=== PATIENT | female | born 1965 | race Caucasian/White ===

== ENCOUNTER 2018-11-10 06:36 | Emergency (ER) | payer OTHER, MEDICAID ==
[~2018-11-10] VITALS: Ht 162.6 cm; Wt 68.0 kg
--- NOTE | 2018-11-10 06:36 | NUR ---
PT ZORAIDA ALS. TAKEN TO BED 11
[2018-11-10 06:37] VITALS: BP 125/77
--- NOTE | 2018-11-10 06:40 | NUR ---
PT BIBA FOR SOB X1 DAY. 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 RR EVEN AND UNLABORED, BL BS DIMINSHED THROUGHOUT. PT ON NC 5L ON ARRIVAL. WILL CONTINUE W/ ORDERS. PMH HTN, BREAST CANCER, DOUBLE MASTECOMY
[2018-11-10] MEDS ORDERED: NACL 0.9% 500 ML IV SCH (06:41)
--- NOTE | 2018-11-10 07:04 | NUR ---
X-Ray at bedside.
[2018-11-10 07:10] LABS: HEMATOCRIT 29.6 % (36-48); HEMOGLOBIN 9.7 g/dL (12.0-16.0); LYMPHOCYTES # (AUTO) 0.7 K/uL (2.5-16.5); LYMPHOCYTES % (AUTO) 15.9 % (20.5-51.1); MEAN CORPUSCULAR HEMOGLOBIN 29 pg (27-31); MEAN CORPUSCULAR HGB CONC 33 g/dL (33-37); MEAN CORPUSCULAR VOLUME 87.2 fL (80-94); MONOCYTES # (AUTO) 0.1 K/uL (0.8-1.0); MONOCYTES % (AUTO) 3.1 % (1.7-9.3); NEUTROPHILS # (AUTO) 3.6 K/uL (1.8-7.7); PLATELET COUNT (AUTO) 184 K/uL (140-450); RED BLOOD CELL COUNT(AUTO) 3.39 MIL/uL (4.20-5.40); RED CELL DISTRIBUTION WIDTH 21.6 % (11.6-13.7); WHITE BLOOD COUNT (AUTO) 4.5 K/uL (4.8-10.8)
[2018-11-10 07:40] LABS: ANION GAP 15.5 (8-16); CARBON DIOXIDE 22.1 mmol/L (21-32); CREATININE 0.7 mg/dL (0.6-1.3); POTASSIUM 3.6 mmol/L (3.5-5.1)
[2018-11-10 07:45] LABS: ALBUMIN 2.5 g/dL (3.4-5.0); TOTAL BILIRUBIN 0.9 mg/dL (0.0-1.0)
[2018-11-10 08:10] LABS: PROTHROMBIN TIME 10.7 secs (10.8-13.4)
--- NOTE | 2018-11-10 08:31 | NUR ---
PT IN BED, POSITIONED TO COMFORT, WILL CONTINUE TO MONITOR.
[2018-11-10 09:13] LABS: BILIRUBIN,URINE NEGATIVE (NEGATIVE); BLOOD, URINE NEGATIVE (NEGATIVE); COLOR,URINE YELLOW (YELLOW); LEUKOCYTE ESTERASE ,URINE TRACE (NEGATIVE); NITRITE, URINE NEGATIVE (NEGATIVE); UGLUCOSE NEGATIVE (NEGATIVE)
--- NOTE | 2018-11-10 09:15 | NUR ---
pt placed on non rebreather mask for comfort at 12L , pt 02 sat at 97% at this time.
[2018-11-10 09:19] LABS: APPEARANCE,URINE SLIGHTLY HAZY (CLEAR)
[2018-11-10 09:21] LABS: RBC,URINE 0-5 (RARE) /HPF (0-5)
--- NOTE | 2018-11-10 09:40 | NUR ---
PT LAYING IN BED, FAMILY AT BEDSIDE, PENDING TRANSFER TO [facility].
--- NOTE | 2018-11-10 10:54 | NUR ---
REPORT TO NAOMIE VELAZCO. TRANSFER OF CARE AT THIS TIME.
--- NOTE | 2018-11-10 10:55 | NUR ---
REPORT RECIEVED FROM KALI AKBAR FOR CONTINUATION OF CARE. VSS AT THIS TIME.
--- NOTE | 2018-11-10 12:06 | NUR ---
CALLED REPORT TO [facility] [place] [facility] YANG. AWAITING TRANSFER.
[2018-11-10 12:45] VITALS: BP 118/72
== END 2018-11-10 12:06 | disposition short-term general hospital (02) ==
LOC: MED 06:36
DX: R09.02 Hypoxemia (principal); C79.9 Secondary malignant neoplasm of unspecified site; E11.9 Type 2 diabetes mellitus without complications; I10 Essential (primary) hypertension; Z90.710 Acquired absence of both cervix and uterus
CPT/HCPCS: 36415; 36600; 71045; 71275; 80053; 81001; 82803; 83605; 83880; 84484; 85025; 85379; 85610; 85730; 87040; 87086; 93005; 99284; J7030; Q9967